=== PATIENT | male | born 1995 | race Caucasian/White ===

== ENCOUNTER 2021-03-05 19:14 | Inpatient (IN) ==
[2021-03-05] MEDS ORDERED: ACETAMINOPHEN 500 MG TAB PO STA (19:34)
[2021-03-05] MEDS ORDERED: SODIUM CHLORIDE 0.9% 1000ML 2,000 ML IV ONE (19:34)
[2021-03-05] MEDS ORDERED: KETOROLAC 30 MG/ML VIAL IV ONE (19:34)
[2021-03-05] MEDS ORDERED: ALBUTEROL 0.083% NEBU SOLN 3 ML VIAL NEB STA (19:35)
--- NOTE | 2021-03-05 19:53 | XRay Report ---
XR chest 1V portable CLINICAL HISTORY: covid fever COMPARISON STUDY: Chest radiograph March 03, 2021. FINDINGS: Lung volumes are normal. There is no pneumothorax or pleural effusion. Left basilar consoli dation has progressed. Additional multifocal opacities within lungs have developed since prior examin ation. Cardiac size is normal. There is no evidence for pulmonary edema. IMPRESSION: Significant progression of multifocal bilateral airspace opacities, including left basil ar consolidation, since prior chest radiograph. The findings represent viral pneumonia. ACT 112: Negative or not required by law. Electronically signed by: James Anaya M.D. 03/05/2021 7:51 PM
[2021-03-05] MEDS ORDERED: dexAMETHasone**PF** 10 MG/ML VIAL IV ONE (20:04)
[2021-03-05 20:09] LABS: Hematocrit (blood only) 42.4 % (42-52); Hemoglobin 14.5 g/dL (14.0-18.0); Mean Corpuscular Hemoglobin 28.4 pg (25-34); Mean Corpuscular Hgb Conc 34.2 g/dL (32-36); Mean Corpuscular Volume 83.1 fL (80-100); Mean Platelet Volume 9.6 fL (7.4-10.4); Platelet Count 197 K/uL (130-400); RDW Coefficient of Variation 12.5 % (11.5-14.5); RDW Standard Deviation 37.9 fL (36.4-46.3); White Blood Count 3.88 K/uL (4.8-10.8)
--- NOTE | 2021-03-05 20:24 | Emergency Department Note ---
History of Present Illness General Chief complaint: Fever Stated complaint: FEVER Time Seen by Provider: 03/05/21 19:23 History of Present Illness Maximum Pain Intensity: 2 This patient is a 25-year-old male who presents emergency department via private vehicle for evaluation of ongoing fever and productive cough. The patient was diagnosed with Covid on 02/27. He was sent home and reportedly finished a course of azithromycin in addition to doxycycline, which he is still taking. The patient has still continued to run a fever around 104 F. He last took ibuprofen 400 mg at 4 PM today. He did not take any Tylenol today. He did notice some blood in his sputum. Home Medications Medication Instructions Recorded Confirmed Type doxycycline hyclate 100 mg tablet 100 mg PO BID 10 Days #20 tab 03/03/21 1 Rx [id number]-xdqfvgon-ejpuh acid 400 1 tab PO DAILY 03/03/21 03/05/21 History mcg-vit K 20 mcg-lycop 300 mcg tablet (Men's Daily Formula) saw palmetto 500 mg capsule 500 mg PO DAILY 03/03/21 03/05/21 History ibuprofen 200 mg tablet 800 mg PO BID PRN 03/05/21 03/05/21 History Allergies Allergy/AdvReac Type Severity Reaction Status Date / Time animal dander Allergy Intermediate SNEEZING, Verified 03/05/21 20:17 CONGESTION bacitracin Allergy Intermediate SKIN Verified 03/05/21 20:17 [From Neosporin IRRITATION ([id number])] grass pollen Allergy Intermediate SNEEZING, Verified 03/05/21 20:17 CONGESTION house dust Allergy Intermediate SNEEZING, Verified 03/05/21 20:17 CONGESTION neomycin Allergy Intermediate SKIN Verified 03/05/21 20:17 [From Neosporin IRRITATION ([id number])] polymyxin B Allergy Intermediate SKIN Verified 03/05/21 20:17 [From Neosporin IRRITATION ([id number])] nickel Allergy Mild SKIN Verified 03/05/21 20:17 IRRITATION Penicillins AdvReac Severe SEVERE Verified 03/05/21 20:17 UPSET STOMACH Past Med/Surg History Medical History Pneumonia due to COVID-19 virus Social History Smoking Status: Never smoker Hx Alcohol Use: Yes Alcohol type: beer Hx Substance Use: No Preferred Language: Turkish Communication Ability: Effective Meat Specialist Required: No Beliefs That Will Affect Care: None Current Living Situation: Family Feels Safe at Home: Yes Assistive Devices: Oxygen - Continuous Review of Systems A total of 10 systems reviewed and were otherwise negative Physical Exam Vital Signs Vital Signs - 24 hr 03/05/21 19:14 03/05/21 19:17 03/05/21 20:05 Temperature 38.1 C H 38.1 C H Temperature Source Temporal Artery Scan Oral Pulse Rate 123 H Pulse Rate [Carotid] 128 H 130 H Pulse Rhythm [Carotid] Respiratory Rate 24 18 18 Respiratory Effort / Characteristics Non-Labored Spontaneous Respiratory Depth Normal Normal Blood Pressure 135/83 Blood Pressure [Left Arm] 114/73 Blood Pressure Mean 100 Blood Pressure Mean [Left Arm] 86 Blood Pressure Position [Left Arm] Lying Pulse Oximetry 92 93 99 Oxygen Delivery Method Room Air Room Air Room Air Sepsis Recent Fever Within 48 Hours Yes Sepsis New/Unexplained Change in Mental Status No Sepsis Action Taken by Nursing Physician Notified 03/05/21 20:40 Temperature Temperature Source Pulse Rate Pulse Rate [Carotid] 132 H Pulse Rhythm [Carotid] Regular Respiratory Rate 24 Respiratory Effort / Characteristics Non-Labored Respiratory Depth Blood Pressure Blood Pressure [Left Arm] 118/79 Blood Pressure Mean Blood Pressure Mean [Left Arm] 92 Blood Pressure Position [Left Arm] Lying Pulse Oximetry 90 Oxygen Delivery Method Room Air Sepsis Recent Fever Within 48 Hours Sepsis New/Unexplained Change in Mental Status Sepsis Action Taken by Nursing 25-year-old male, acutely ill in appearance. Constitutional WD/WN, vitals as above + ill appearing Eyes EOM intact bilaterally ENMT external ear and nose normal, oropharynx normal Neck trachea midline Respiratory Crackles at the bases bilaterally. Cardiovascular Rate/Rhythm: + tachycardic No murmur Gastrointestinal (Abdomen) normal bowel sounds, soft, nontender, no hepatosplenomegaly Musculoskeletal no cyanosis or clubbing, extremities motor strength 5/5 Skin Moist Neurologic Alert and oriented x3. No focal motor deficits. Psychiatric Acting appropriately Course Course Patient was seen and examined Vital signs including blood pressure were reviewed medications list was verified with patient Labs were obtained, and a saline lock was established An order was placed for continuous cardiac monitoring. The monitor shows a rate of 123 with sinus tachycardia rhythm. An EKG was performed and reviewed. Chest x-ray was performed and reviewed. The patient was ordered Toradol 30 mg IV, Tylenol 1000 g p.o., and albuterol treatment, Decadron 10 mg IV and 2 L of fluids. The case was discussed with my supervising physician The patient was updated via telephone regarding his chest x-ray and other results. He voiced understanding. I then spoke with the patient's father, Stephen via telephone. The patient was again updated via telephone. He and his family are in agreement with hospitalist consultation for likely inpatient management. Consultations Consultation #1: Amish hospitalist Administered Medications Guaifenesin (Guaifenesin 600 Mg Tabcr) 1,200 mg PO Q12 AHMET Stop: 04/04/21 22:59 Last Admin: 03/06/21 08:48 Dose: 1,200 mg Documented by: [id number] Admin: 03/05/21 22:58 Dose: 1,200 mg Documented by: [id number] Dexamethasone 6 mg/ Syringe 1.5 mls @ 1 mls/min IV Q24H AHMET Stop: 04/05/21 08:59 Last Admin: 03/06/21 08:51 Dose: 1 mls/min Documented by: [id number] Azithromycin 500 mg/ Dextrose 255 mls @ 125 mls/hr IV DAILY AHMET Stop: 03/13/21 08:59 Last Admin: 03/06/21 08:56 Dose: 125 mls/hr Documented by: [id number] Ceftriaxone Sodium 2,000 mg/ (Dextrose) 70 mls @ 140 mls/hr IV Q24H AHMET; Protocol Stop: 03/12/21 22:59 Last Infusion: 03/06/21 00:26 Dose: 0 mls/hr Documented by: [id number] Admin: 03/05/21 23:56 Dose: 140 mls/hr Documented by: [id number] Sodium Chloride (Sodium Chloride 0.9% 10ml Flush) 30 ml IV DAILY@2000 [facility] Stop: 03/09/21 20:01 Last Admin: 03/05/21 23:57 Dose: 30 ml Documented by: [id number] Vitamin D (Cholecalciferol 1,000 Units 25 Mcg Tab) 5,000 units PO QAM AHMET Stop: 04/05/21 08:59 Last Admin: 03/06/21 08:49 Dose: 5,000 units Documented by: [id number] Zinc Sulfate (Zinc Sulfate 220 Mg Capsule) 220 mg PO QAM AHMET Stop: 04/05/21 08:59 Last Admin: 03/06/21 08:49 Dose: 220 mg Documented by: [id number] Discontinued Medications Acetaminophen (Acetaminophen 500 Mg Tab) 1,000 mg PO NOW STA Stop: 03/05/21 19:35 Last Admin: 03/05/21 19:55 Dose: 1,000 mg Documented by: [id number] Albuterol (Albuterol 0.083% Nebu Soln 3 Ml Vial) 2.5 mg NEB NOW STA Stop: 03/05/21 19:36 Last Admin: 03/05/21 19:55 Dose: 2.5 mg Documented by: [id number] Albuterol (Albuterol Hfa 8 Gm Inhaler) 2 puffs INH QIDR AHMET Stop: 04/04/21 22:59 Last Admin: 03/06/21 07:28 Dose: 2 puffs Documented by: [id number] Admin: 03/05/21 23:50 Dose: 2 puffs Documented by: [id number] Dexamethasone Sodium Phosphate (DexamethasonePf 10 Mg/Ml Vial) 10 mg IV NOW ONE Stop: 03/05/21 20:05 Last Admin: 03/05/21 20:27 Dose: 10 mg Documented by: [id number] Sodium Chloride (Nss 1000ml) 2,000 mls @ 999 mls/hr IV .Q2H1M ONE Stop: 03/05/21 21:34 Last Infusion: 03/05/21 22:29 Dose: 0 mls/hr Documented by: [id number] Admin: 03/05/21 19:57 Dose: 999 mls/hr Documented by: [id number] Remdesivir 200 mg/ Sodium (Chloride) 250 mls @ 125 mls/hr IV ONE STA; Protocol Stop: 03/05/21 22:59 Last Infusion: 03/05/21 23:57 Dose: 0 mls/hr Documented by: [id number] Admin: 03/05/21 22:00 Dose: 125 mls/hr Documented by: [id number] Ketorolac Tromethamine (Ketorolac 30 Mg/Ml Vial) 30 mg IV NOW ONE Stop: 03/05/21 19:35 Last Admin: 03/05/21 19:55 Dose: 30 mg Documented by: [id number] Medical Decision Making Medical Records Attestation: I reviewed the patient's medical records. Home Medications Current Medication List: was personally reviewed by me Laboratory Data Attestation: I reviewed the patient's lab results. Result diagrams: 03/06/21 07:25 03/06/21 07:30 Lab Results 03/05/21 03/05/21 03/05/21 Range/Units 20:00 20:00 20:00 WBC 3.88 L (4.8-10.8) K/uL RBC 5.10 (4.7-6.1) M/uL Hgb 14.5 (14.0-18.0) g/dL Hct 42.4 (42-52) % MCV 83.1 (80-100) fL MCH 28.4 (25-34) pg MCHC 34.2 (32-36) g/dL RDW Std Deviation 37.9 (36.4-46.3) fL RDW Coeff of Car 12.5 (11.5-14.5) % Plt Count 197 (130-400) K/uL MPV 9.6 (7.4-10.4) fL Immature Gran % (Auto) 0.3 % Neut % (Auto) 84.7 % Lymph % (Auto) 12.9 % [place] % (Auto) 2.1 % Eos % (Auto) 0.0 % Baso % (Auto) 0.0 % Neut # (Auto) 3.29 (1.4-6.5) K/uL Lymph # (Auto) 0.50 L (1.2-3.4) K/uL [place] # (Auto) 0.08 L (0.11-0.59) K/uL Eos # (Auto) 0.00 (0-0.5) K/uL Baso # (Auto) 0.00 (0-0.2) K/uL Immature Gran # (Auto) 0.01 (0.00-0.02) K/uL Sodium 135 L (136-145) mmol/L Potassium 3.7 (3.5-5.1) mmol/L Chloride 100 (98-107) mmol/L Carbon Dioxide 27 (21-32) mmol/L Anion Gap 8.0 (3-11) BUN 5 L (7-18) mg/dl Creatinine 0.98 (0.6-1.4) mg/dl Est Cr Clr Drug Dosing 117.2 ml/min Est GFR ( Amer) 125.4 ml/min Est GFR (Non-Af Amer) 108.2 ml/min BUN/Creatinine Ratio 5.4 L (10-20) Glucose 110 H (70-99) mg/dl Calcium 9.0 (8.5-10.1) mg/dl Total Bilirubin 0.5 (0.2-1) mg/dl AST 106 H (15-37) U/L ALT 68 (12-78) U/L Alkaline Phosphatase 37 L (45-117) U/L Total Protein 7.5 (6.4-8.2) gm/dl Albumin 3.3 L (3.4-5.0) gm/dl Globulin 4.2 H (2.5-4.0) gm/dl Albumin/Globulin Ratio 0.8 L (0.9-2) Procalcitonin 0.08 (0-0.5) ng/ml COVID-19 Eval Order SARS-CoV-2 (PCR) (Negative) 03/05/21 03/05/21 Range/Units 20:30 20:30 WBC (4.8-10.8) K/uL RBC (4.7-6.1) M/uL Hgb (14.0-18.0) g/dL Hct (42-52) % MCV (80-100) fL MCH (25-34) pg MCHC (32-36) g/dL RDW Std Deviation (36.4-46.3) fL RDW Coeff of Car (11.5-14.5) % Plt Count (130-400) K/uL MPV (7.4-10.4) fL Immature Gran % (Auto) % Neut % (Auto) % Lymph % (Auto) % [place] % (Auto) % Eos % (Auto) % Baso % (Auto) % Neut # (Auto) (1.4-6.5) K/uL Lymph # (Auto) (1.2-3.4) K/uL [place] # (Auto) (0.11-0.59) K/uL Eos # (Auto) (0-0.5) K/uL Baso # (Auto) (0-0.2) K/uL Immature Gran # (Auto) (0.00-0.02) K/uL Sodium (136-145) mmol/L Potassium (3.5-5.1) mmol/L Chloride (98-107) mmol/L Carbon Dioxide (21-32) mmol/L Anion Gap (3-11) BUN (7-18) mg/dl Creatinine (0.6-1.4) mg/dl Est Cr Clr Drug Dosing ml/min Est GFR ( Amer) ml/min Est GFR (Non-Af Amer) ml/min BUN/Creatinine Ratio (10-20) Glucose (70-99) mg/dl Calcium (8.5-10.1) mg/dl Total Bilirubin (0.2-1) mg/dl AST (15-37) U/L ALT (12-78) U/L Alkaline Phosphatase (45-117) U/L Total Protein (6.4-8.2) gm/dl Albumin (3.4-5.0) gm/dl Globulin (2.5-4.0) gm/dl Albumin/Globulin Ratio (0.9-2) Procalcitonin (0-0.5) ng/ml COVID-19 Eval Order Covid19 at [facility] SARS-CoV-2 (PCR) POSITIVE A* (Negative) Imaging Data Attestation: I personally reviewed and interpreted this imaging study as follows: Radiologist's Impression: Chest X-Ray 03/05/21 19:34 XR chest 1V portable CLINICAL HISTORY: covid fever COMPARISON STUDY: Chest radiograph March 03, 2021. FINDINGS: Lung volumes are normal. There is no pneumothorax or pleural effusion. Left basilar consolidation has progressed. Additional multifocal opacities within lungs have developed since prior examination. Cardiac size is normal. Th ere is no evidence for pulmonary edema. IMPRESSION: Significant progression of multifocal bilateral airspace opacities, including left basilar consolidation, since prior chest radiograph. The findings represent viral pneumonia. ACT 112: Negative or not required by law. Electronically signed by: James Anaya M.D. 03/05/2021 7:51 PM ECG Data Attestation: I personally reviewed and interpreted this ECG as follows: Indication: + SOB/dyspnea Additional Comments: EKG shows tachycardia with a rate of [address] depression noted in the anterior leads. No prior EKG for comparison. Incomplete bundle branch block noted. Blood Pressure Blood Pressure Findings: Normal blood pressure MDM Narrative Differential diagnosis: Progressive viral pneumonia, bacterial pneumonia, acute respiratory failure, sepsis, dehydration, among others were considered This patient is a 25-year-old male that returns to the emergency department complaining of uncontrolled fever and upper respiratory symptoms. The patient is known to positive for Covid. He has been seen in the emergency department twice. He is completed a course of azithromycin and is currently on doxycycline. He has not seen any improvement. On exam, he was ill in appearance. He was febrile and tachycardic. Slightly tachypneic. Oxygen was 90% on room air. A work-up was performed. Labs are consistent with Covid with a slightly low WBC and slightly abnormal liver enzymes. Otherwise, they are fairly unremarkable. The chest x-ray is significantly worse than his chest x- ray from a few days ago. I did not feel comfortable sending the patient home given his worsening symptoms. The patient will be evaluated by the hospitalist for likely inpatient management. Impression & Plan Pneumonia due to COVID-19 virus Discharge Plan Visit Data Chief Complaint: Fever Stated Complaint: FEVER ED Provider: [facility] Midlevel Provider: Noemy Wilson Discharge Problem: Pneumonia due to COVID-19 virus Patient Disposition: Admitted As Inpatient Discharge Instructions Interventions: ED Discharge Assessment Last Done: 03/05/21 22:06
[2021-03-05 20:26] LABS: Albumin Level 3.3 gm/dl (3.4-5.0); BUN Creatinine Ratio 5.4 (10-20); Creatinine Clr Calc Pharmacy 117.2 ml/min; Est GFR (African American) 125.4 ml/min; Est GFR (Non-African American) 108.2 ml/min; Potassium 3.7 mmol/L (3.5-5.1)
[2021-03-05 20:29] LABS: Albumin Globulin Ratio 0.8 (0.9-2); Bilirubin,Total 0.5 mg/dl (0.2-1); Globulin 4.2 gm/dl (2.5-4.0); Total Protein 7.5 gm/dl (6.4-8.2)
[2021-03-05 20:37] LABS: Immature Granulocytes # (auto) 0.01 K/uL (0.00-0.02); Immature Granulocytes % (auto) 0.3 %; Lymphocytes % (auto) 12.9 %; Monocytes # (auto) 0.08 K/uL (0.11-0.59); Monocytes % (auto) 2.1 %; Neutrophils # (auto) 3.29 K/uL (1.4-6.5); Neutrophils % (auto) 84.7 %
[2021-03-05] MEDS ORDERED: REMDESIVIR 200 MG in SODIUM CHLORIDE 0.9% 210 ML IV STA (21:00)
--- NOTE | 2021-03-05 21:01 | History & Physical Report ---
Date of Service March 05, 2021 Assessment & Plan (1) Pneumonia due to COVID-19 virus: Plan: Pneumonia due to COVID-19 virus/hypoxia/worsening chest x-ray/secondary bacterial pneumonia- Dexamethasone 10 mg IV given in the ED Dexamethasone 6 mg IV every morning Remdesivir IV per protocol Azithromycin 500 mg IV daily Ceftriaxone 1 g IV daily Albuterol HFA 2 puffs 4 times daily, and every 2 hours as needed Guaifenesin extended release 1200 mg p.o. twice daily Nasal cannula oxygen, titrate to keep pulse ox around 95% Vitamin D 5000 international units p.o. daily Zinc sulfate 220 mg p.o. daily (2) Hypoxia: Plan: See above (3) Transaminitis: Plan: Elevated AST, likely secondary to COVID-19 infection Follow serially History of Present Illness Chief Complaint: The patient presents to the emergency department with complaint of persistent fever after having been diagnosed with COVID-19 infection and presently is on doxycycline and azithromycin orally Primary Care Provider: Nesha Mckeon The patient is a 25-year-old male with no significant past medical history who initially was assessed at [facility]'s emergency department on February 24 for a fever, and was COVID-19 negative at that time. He was discharged without treatment, and return to the ER on February 27, at that time was COVID-19 positive and was placed on a course of azithromycin. He was seen at this emergency department on March 03, and was placed on oral doxycycline due to concerns regarding secondary bacterial pneumonia. The patient presents to the emergency department again this evening with persistent temperature. He does admit to some progressive shortness of breath and dyspnea on exertion. The patient reports that initial sore throat has resolved. His s ense of taste and smell have improved but are still abnormal. Work-up in the emergency department included a chest x-ray with significant worsening compared to 03/03. Temperature was 100.6 F. Pulse ox initially was 88% on room air. Abnormal laboratories: AST 106, albumin 3.3. Patient was COVID-19 positive in the ED this evening Allergies Allergy/AdvReac Type Severity Reaction Status Date / Time animal dander Allergy Intermediate SNEEZING, Verified 03/05/21 20:17 CONGESTION bacitracin Allergy Intermediate SKIN Verified 03/05/21 20:17 [From Neosporin IRRITATION ([id number])] grass pollen Allergy Intermediate SNEEZING, Verified 03/05/21 20:17 CONGESTION house dust Allergy Intermediate SNEEZING, Verified 03/05/21 20:17 CONGESTION neomycin Allergy Intermediate SKIN Verified 03/05/21 20:17 [From Neosporin IRRITATION ([id number])] polymyxin B Allergy Intermediate SKIN Verified 03/05/21 20:17 [From Neosporin IRRITATION ([id number])] nickel Allergy Mild SKIN Verified 03/05/21 20:17 IRRITATION Penicillins AdvReac Severe SEVERE Verified 03/05/21 20:17 UPSET STOMACH Home Medications Medication Instructions Recorded Confirmed Type doxycycline hyclate 100 mg tablet 100 mg PO BID 10 Days #20 tab 03/03/21 03/05/21 Rx ajrdecwi-qgedcqnv-vudhn acid 400 1 tab PO DAILY 03/03/21 03/05/21 History mcg-vit K 20 mcg-lycop 300 mcg tablet (Men's Daily Formula) saw palmetto 500 mg capsule 500 mg PO DAILY 03/03/21 03/05/21 History ibuprofen 200 mg tablet 800 mg PO BID PRN 03/05/21 03/05/21 History Past Med/Surg History Medical History Pneumonia due to COVID-19 virus Social History Smoking Status: Never smoker Preferred Language: Rwandan Feels Safe at Home: Yes Review of Systems Review of Systems: The patient denies chest pain, palpitations, cough, lower extremity swelling, sore throat, chills, sweats, nausea, vomiting, diarrhea , constipation, abdominal pain, pelvic pain, blood in urine or stool, dysuria, urinary frequency or urgency, lightheadedness, dizziness, headache, memory loss, loss of consciousness, rash, abnormal bruising or bleeding, imbalance, focal or generalized weakness, numbness or tingling in arms or legs, generalized arthralgias or myalgias, back or neck pain, or night sweats. The review of systems is otherwise negative other than for that already noted above, and at least 10 systems have been reviewed. Physical Exam Physical Exam: The patient is awake, alert and oriented 3, well developed and well nourished, normocephalic and atraumatic, lying in bed and in no acute distress. HEENT--PERRL, EOMI, mucous membranes and oropharynx dry. Neck--supple. No JVD. No bruits. Thyroid normal, trachea midline, no adenopathy. Heart--normal S1 and S2. No murmurs, rubs or gallops. Lungs--coarse breath sounds bilaterally, left greater than right. No respiratory distress, no accessory muscle use. Abdomen--normal bowel sounds and soft. Nontender. Nondistended, no hernias or masses, no organomegaly. Extremities--no cyanosis or clubbing. No edema. There are good distal pulses b/l. Dermatologic--normal skin turgor, normal color, no abnormal lymph nodes, no rash. Neurologic--cranial nerves II through XII grossly intact. Rheumatologic--normal range of motion. Psychiatric--normal affect. Results & Data Results & Data ([facility]) Vital Signs (Past 12 Hours) Vital Signs Temp Pulse Pulse Resp BP BP Pulse Ox 03/05/21 20:40 132 H 24 118/79 90 03/05/21 20:05 100.6 F H 130 H 18 99 03/05/21 19:17 100.6 F H 123 H 18 135/83 93 Laboratory Results Laboratory Results WBC 3.88 K/uL (4.8-10.8) L 03/05/21 20:00 RBC 5.10 M/uL (4.7-6.1) 03/05/21 20:00 Hgb 14.5 g/dL (14.0-18.0) 03/05/21 20:00 Hct 42.4 % (42-52) 03/05/21 20:00 MCV 83.1 fL (80-100) 03/05/21 20:00 MCH 28.4 pg (25-34) 03/05/21 20:00 MCHC 34.2 g/dL (32-36) 03/05/21 20:00 RDW Std Deviation 37.9 fL (36.4-46.3) 03/05/21 20:00 RDW Coeff of Car 12.5 % (11.5-14.5) 03/05/21 20:00 Plt Count 197 K/uL (130-400) 03/05/21 20:00 MPV 9.6 fL (7.4-10.4) 03/05/21 20:00 Immature Gran % (Auto) 0.3 % 03/05/21 20:00 Neut % (Auto) 84.7 % 03/05/21 20:00 Lymph % (Auto) 12.9 % 03/05/21 20:00 [place] % (Auto) 2.1 % 03/05/21 20:00 Eos % (Auto) 0.0 % 03/05/21 20:00 Baso % (Auto) 0.0 % 03/05/21 20:00 Neut # (Auto) 3.29 K/uL (1.4-6.5) 03/05/21 20:00 Lymph # (Auto) 0.50 K/uL (1.2-3.4) L 03/05/21 20:00 [place] # (Auto) 0.08 K/uL (0.11-0.59) L 03/05/21 20:00 Eos # (Auto) 0.00 K/uL (0-0.5) 03/05/21 20:00 Baso # (Auto) 0.00 K/uL (0-0.2) 03/05/21 20:00 Immature Gran # (Auto) 0.01 K/uL (0.00-0.02) 03/05/21 20:00 Sodium 135 mmol/L (136-145) L 03/05/21 20:00 Potassium 3.7 mmol/L (3.5-5.1) 03/05/21 20:00 Chloride 100 mmol/L (98-107) 03/05/21 20:00 Carbon Dioxide 27 mmol/L (21-32) 03/05/21 20:00 Anion Gap 8.0 (3-11) 03/05/21 20:00 BUN 5 mg/dl (7-18) L 03/05/21 20:00 Creatinine 0.98 mg/dl (0.6-1.4) 03/05/21 20:00 Est Cr Clr Drug Dosing 117.2 ml/min 03/05/21 20:00 Est GFR ( Amer) 125.4 ml/min 03/05/21 20:00 Est GFR (Non-Af Amer) 108.2 ml/min 03/05/21 20:00 BUN/Creatinine Ratio 5.4 (10-20) L 03/05/21 20:00 Glucose 110 mg/dl (70-99) H 03/05/21 20:00 Calcium 9.0 mg/dl (8.5-10.1) 03/05/21 20:00 Total Bilirubin 0.5 mg/dl (0.2-1) 03/05/21 20:00 AST 106 U/L (15-37) H 03/05/21 20:00 ALT 68 U/L (12-78) 03/05/21 20:00 Alkaline Phosphatase 37 U/L (45-117) L 03/05/21 20:00 Total Protein 7.5 gm/dl (6.4-8.2) 03/05/21 20:00 Albumin 3.3 gm/dl (3.4-5.0) L 03/05/21 20:00 Globulin 4.2 gm/dl (2.5-4.0) H 03/05/21 20:00 Albumin/Globulin Ratio 0.8 (0.9-2) L 03/05/21 20:00 Procalcitonin 0.08 ng/ml (0-0.5) 03/05/21 20:00 COVID-19 Eval Order Covid19 at [facility] 03/05/21 20:30 SARS-CoV-2 (PCR) POSITIVE (Negative) A* 03/05/21 20:30 Impressions Chest X-Ray 03/05/21 19:34 XR chest 1V portable CLINICAL HISTORY: covid fever COMPARISON STUDY: Chest radiograph March 03, 2021. FINDINGS: Lung volumes are normal. There is no pneumothorax or pleural effusion. Left basilar consolidation has progressed. Additional multifocal opacities within lungs have developed since prior examination. Cardiac size is normal. There is no evidence for pulmonary edema. IMPRESSION: Significant progression of multifocal bilateral airspace opacities, including left basilar consolidation, since prior chest radiograph. The findings represent viral pneumonia. ACT 112: Negative or not required by law. Electronically signed by: James Anaya M.D. 03/05/2021 7:51 PM Code Status & VTE Plan Code Status Full code VTE Prophylaxis Plan VTE Prophylaxis will be ordered: Yes PG Care Time/CCT Total # of Minutes Spent Total Time Spent with Patient: Total time spent is greater than 50% in coordina tion of care (as documented) at patient's floor/unit and/or counseling patient: Coding Level of Care Code 22913 Initial Inpt Care Lvl 3 Diagnoses Hypoxia R09.02 Transaminitis R74.01 Pneumonia due to COVID-19 virus U07.1; J12.82
[2021-03-05] MEDS ORDERED: ONDANSETRON INJ 2 MG/ML 2 ML VIAL IV PRN (22:27)
[2021-03-05] MEDS ORDERED: ACETAMINOPHEN 325 MG TAB PO PRN (22:27)
[2021-03-05] MEDS: guaiFENesin 600 MG TABCR PO SCH (22:58)
[2021-03-05] MEDS ORDERED: cefTRIAXone SODIUM 2,000 MG in DEXTROSE 5% 50 ML IV SCH (23:00)
[2021-03-05] MEDS: ALBUTEROL HFA 8 GM INHALER INH SCH (23:50)
[2021-03-05] MEDS: SODIUM CHLORIDE 0.9% 10ML FLUSH IV SCH (23:57)
[2021-03-06] MEDS: ALBUTEROL HFA 8 GM INHALER INH SCH (07:28)
[2021-03-06 08:35] LABS: Hematocrit (blood only) 41.8 % (42-52); Hemoglobin 13.9 g/dL (14.0-18.0); Immature Granulocytes # (auto) 0.01 K/uL (0.00-0.02); Immature Granulocytes % (auto) 0.3 %; Lymphocytes # (auto) 0.33 K/uL (1.2-3.4); Lymphocytes % (auto) 9.4 %; Mean Corpuscular Hemoglobin 28.4 pg (25-34); Mean Corpuscular Hgb Conc 33.3 g/dL (32-36); Mean Corpuscular Volume 85.3 fL (80-100); Mean Platelet Volume 10.1 fL (7.4-10.4); Monocytes # (auto) 0.07 K/uL (0.11-0.59); Neutrophils # (auto) 3.11 K/uL (1.4-6.5); Neutrophils % (auto) 88.3 %; Platelet Count 225 K/uL (130-400); RDW Coefficient of Variation 12.7 % (11.5-14.5); RDW Standard Deviation 40.1 fL (36.4-46.3); White Blood Count 3.52 K/uL (4.8-10.8)
[2021-03-06] MEDS: guaiFENesin 600 MG TABCR PO SCH ×2 (08:48→20:48)
[2021-03-06] MEDS: CHOLECALCIFEROL 1,000 UNITS 25 MCG TAB PO SCH (08:49)
[2021-03-06] MEDS: ZINC SULFATE 220 MG CAPSULE PO SCH (08:49)
[2021-03-06] MEDS: dexAMETHasone 6 MG in SYRINGE 0 ML IV SCH (08:51)
[2021-03-06 08:57] LABS: Albumin Level 2.7 gm/dl (3.4-5.0); BUN Creatinine Ratio 7.3 (10-20); Calcium 8.8 mg/dl (8.5-10.1); Creatinine Clr Calc Pharmacy 136.8 ml/min; Est GFR (Non-African American) 123.4 ml/min; Potassium 4.1 mmol/L (3.5-5.1)
[2021-03-06 08:59] LABS: Albumin Globulin Ratio 0.7 (0.9-2); Bilirubin,Total 0.3 mg/dl (0.2-1); C Reactive Protein 7.01 mg/dl (0-0.29); Globulin 3.8 gm/dl (2.5-4.0); Total Protein 6.5 gm/dl (6.4-8.2)
[2021-03-06] MEDS ORDERED: AZITHROMYCIN 500 MG in DEXTROSE 5% 250 ML IV SCH (09:00)
[2021-03-06] MEDS ORDERED: ALBUTEROL HFA 8 GM INHALER INH PRN (09:16)
--- NOTE | 2021-03-06 11:18 | Hospitalist Progress Note ---
Date of Service March 06, 2021 Assessment & Plan (1) Pneumonia due to COVID-19 virus: Plan: Pneumonia due to COVID-19 virus/hypoxia/worsening chest x-ray/secondary bacterial pneumonia sick for about 7-10 days now dexamethasone 6mg IV daily, day 2 Remdesivir IV per protocol, day 2 stop antibiotics as he already completed a course of azithromycin outpatient Albuterol HFA 2 puffs 4 times daily PRN Guaifenesin extended release 1200 mg p.o. twice daily Nasal cannula oxygen, titrate to keep pulse ox around 95% Vitamin D 5000 international units p.o. daily Zinc sulfate 220 mg p.o. daily lay prone or on his side, incentive spirometer stable on 3L, discussed that he might need more oxygen before he gets better, don't be alarmed (2) Hypoxia: Plan: due to COVID pneumonia stable today on 3L has some tachypnea but no distress minimal cough, really not bothering him (3) Transaminitis: Plan: Elevated AST, likely secondary to COVID-19 infection follow while on Remdesivir Admission and Anticipated Discharge Date Admission Date: March 05, 2021 Subjective patient says he is feeling better than yesterday/last night he says he has never been this sick, he says he feels a little nervous encouraged him that he is young, CRP not very high, only on low flow oxygen discussed importance of eating what he can, laying prone or on his side when he is in bed using incentive spirometer and flutter valve reviewed chart and labs from admission Review of Systems Review of Systems: All systems reviewed & are unremarkable except as noted in Subjective Constitutional: + body aches, + fatigue and + weakness; no fever, no chills and no sweats Respiratory: + cough, + dyspnea and + dyspnea on exertion Cardiovascular: no chest pain Gastrointestinal: no abdominal pain, no nausea, no vomiting, no constipation and no diarrhea/loose stools Physical Exam Physical Exam: General: well developed, well nourished, thin male, ill a ppearing Neck: supple, trachea midline, normal thyroid Lungs: crackles in bases, + tachypnea, no accessory muscle use, no distress Heart: tachycardic S1 and S2, no murmur, peripheral pulses normal, capillary refill normal, no edema Abdomen: soft, NT, ND, + BS, no hepatomegaly, normal to percussion Extremities: normal in appearance, no cyanosis, no petechiae, strength is 5/5 bilaterally Neuro: awake, cooperative, moves all extremities, no focal motor deficits, CN II-XII intact, sensation in extremities intact, normal speech Skin: warm, dry, no rash, normal turgor Psych: Awake, alert oriented x 3, euthymic affect Results & Data Results & Data ([facility]) Vital Signs (Past 12 Hours) Vital Signs Temp Pulse Pulse Pulse Resp BP BP 03/06/21 10:01 03/06/21 09:46 102 H 03/06/21 08:10 37.5 C 126 H 30 H 120/59 L 03/06/21 07:28 118 H 18 03/06/21 03:49 37.3 C 108 H 18 107/67 03/05/21 23:50 117 H 22 Pulse Ox Pulse Ox 03/06/21 10:01 92 03/06/21 09:46 03/06/21 08:10 93 03/06/21 07:28 93 03/06/21 03:49 95 03/05/21 23:50 90 Laboratory Results Laboratory Results - last 24 hr 03/05/21 03/05/21 03/05/21 20:00 20:00 20:00 WBC 3.88 L RBC 5.10 Hgb 14.5 Hct 42.4 MCV 83.1 MCH 28.4 MCHC 34.2 RDW Std Deviation 37.9 RDW Coeff of Car 12.5 Plt Count 197 MPV 9.6 Immature Gran % (Auto) 0.3 Neut % (Auto) 84.7 Lymph % (Auto) 12.9 Fleming % (Auto) 2.1 Eos % (Auto) 0.0 Baso % (Auto) 0.0 Neut # (Auto) 3.29 Lymph # (Auto) 0.50 L Fleming # (Auto) 0.08 L Eos # (Auto) 0.00 Baso # (Auto) 0.00 Immature Gran # (Auto) 0.01 Sodium 135 L Potassium 3.7 Chloride 100 Carbon Dioxide 27 Anion Gap 8.0 BUN 5 L Creatinine 0.98 Est Cr Clr Drug Dosing 117.2 Est GFR ( Amer) 125.4 Est GFR (Non-Af Amer) 108.2 BUN/Creatinine Ratio 5.4 L Glucose 110 H Calcium 9.0 Total Bilirubin 0.5 AST 106 H ALT 68 Alkaline Phosphatase 37 L C-Reactive Protein Total Protein 7.5 Albumin 3.3 L Globulin 4.2 H Albumin/Globulin Ratio 0.8 L Procalcitonin 0.08 COVID-19 Eval Order SARS-CoV-2 (PCR) 03/05/21 03/05/21 03/06/21 20:30 20:30 07:25 WBC 3.52 L RBC 4.90 Hgb 13.9 L Hct 41.8 L MCV 85.3 MCH 28.4 MCHC 33.3 RDW Std Deviation 40.1 RDW Coeff of Car 12.7 Plt Count 225 MPV 10.1 Immature Gran % (Auto) 0.3 Neut % (Auto) 88.3 Lymph % (Auto) 9.4 Fleming % (Auto) 2.0 Eos % (Auto) 0.0 Baso % (Auto) 0.0 Neut # (Auto) 3.11 Lymph # (Auto) 0.33 L Fleming # (Auto) 0.07 L Eos # (Auto) 0.00 Baso # (Auto) 0.00 Immature Gran # (Auto) 0.01 Sodium Potassium Chloride Carbon Dioxide Anion Gap BUN Creatinine Est Cr Clr Drug Dosing Est GFR ( Amer) Est GFR (Non-Af Amer) BUN/Creatinine Ratio Glucose Calcium Total Bilirubin AST ALT Alkaline Phosphatase C-Reactive Protein Total Protein Albumin Globulin Albumin/Globulin Ratio Procalcitonin COVID-19 Eval Order Covid19 at [facility] SARS-CoV-2 (PCR) POSITIVE A* 03/06/21 07:30 WBC RBC Hgb Hct MCV MCH MCHC RDW Std Deviation RDW Coeff of Car Plt Count MPV Immature Gran % (Auto) Neut % (Auto) Lymph % (Auto) Fleming % (Auto) Eos % (Auto) Baso % (Auto) Neut # (Auto) Lymph # (Auto) Fleming # (Auto) Eos # (Auto) Baso # (Auto) Immature Gran # (Auto) Sodium 140 Potassium 4.1 Chloride 108 H Carbon Dioxide 25 Anion Gap 7.0 BUN 6 L Creatinine 0.84 Est Cr Clr Drug Dosing 136.8 Est GFR ( Amer) 143.0 Est GFR (Non-Af Amer) 123.4 BUN/Creatinine Ratio 7.3 L Glucose 145 H Calcium 8.8 Total Bilirubin 0.3 AST 80 H ALT 57 Alkaline Phosphatase 33 L C-Reactive Protein 7.01 H Total Protein 6.5 Albumin 2.7 L Globulin 3.8 Albumin/Globulin Ratio 0.7 L Procalcitonin COVID-19 Eval Order SARS-CoV-2 (PCR) Medications Administered Current Inpatient Medications Acetaminophen (Acetaminophen 325 Mg Tab) 650 mg PO Q4H PRN PRN Reason: Pain or Fever Stop: 04/04/21 22:26 Albuterol (Albuterol Hfa 8 Gm Inhaler) 2 puffs INH Q4R PRN PRN Reason: Shortness Of Breath Or Wheezing Stop: 04/05/21 09:15 Guaifenesin (Guaifenesin 600 Mg Tabcr) 1,200 mg PO Q12 AHMET Stop: 04/04/21 22:59 Last Admin: 03/06/21 08:48 Dose: 1,200 mg Documented by: Dexamethasone 6 mg/ Syringe 1.5 mls @ 1 mls/min IV Q24H AHMET Stop: 04/05/21 08:59 Last Admin: 03/06/21 08:51 Dose: 1 mls/min Documented by: Azithromycin 500 mg/ Dextrose 255 mls @ 125 mls/hr IV DAILY AHMET Stop: 03/13/21 08:59 Last Infusion: 03/06/21 11:09 Dose: Infused Documented by: Remdesivir 100 mg/ Sodium (Chloride) 250 mls @ 250 mls/hr IV Q24H [facility]; Protocol Stop: 03/09/21 20:59 Ceftriaxone Sodium 2,000 mg/ (Dextrose) 70 mls @ 140 mls/hr IV Q24H AHMET; Protocol Stop: 03/12/21 22:59 Last Infusion: 03/06/21 00:26 Dose: Infused Documented by: Ondansetron HCl (Ondansetron Inj 2 Mg/Ml 2 Ml Vial) 4 mg IV Q6H PRN PRN Reason: Nausea Stop: 04/04/21 22:26 Sodium Chloride (Sodium Chloride 0.9% 10ml Flush) 30 ml IV DAILY@2000 [facility] Stop: 03/09/21 20:01 Last Admin: 03/05/21 23:57 Dose: 30 ml Documented by: Vitamin D (Cholecalciferol 1,000 Units 25 Mcg Tab) 5,000 units PO QAM AHMET Stop: 04/05/21 08:59 Last Admin: 03/06/21 08:49 Dose: 5,000 units Documented by: Zinc Sulfate (Zinc Sulfate 220 Mg Capsule) 220 mg PO QAM AHMET Stop: 04/05/21 08:59 Last Admin: 03/06/21 08:49 Dose: 220 mg Documented by: PG Care Time/CCT Total # of Minutes Spent Total Time Spent with Patient: Total time spent is greater than 50% in coordination of care (as documented) at patient's floor/unit and/or counseling patient: Coding Level of Care Code 50630 Subseq Hosp Care Lvl 2 Diagnoses Pneumonia due to COVID-19 virus U07.1; J12.82 Hypoxia R09.02 Transaminitis R74.01
[2021-03-06] MEDS: REMDESIVIR 100 MG in SODIUM CHLORIDE 0.9% 230 ML IV SCH (19:42)
[2021-03-06] MEDS: SODIUM CHLORIDE 0.9% 10ML FLUSH IV SCH (20:48)
[2021-03-07] MEDS: BENZONATATE 100 MG CAPSULE PO SCH ×3 (04:57→21:06)
[2021-03-07 07:56] LABS: Basophils # (auto) 0.01 K/uL (0-0.2); Basophils % (auto) 0.1 %; Hematocrit (blood only) 43.1 % (42-52); Hemoglobin 14.4 g/dL (14.0-18.0); Immature Granulocytes # (auto) 0.04 K/uL (0.00-0.02); Immature Granulocytes % (auto) 0.6 %; Lymphocytes # (auto) 0.73 K/uL (1.2-3.4); Lymphocytes % (auto) 10.4 %; Mean Corpuscular Hemoglobin 28.3 pg (25-34); Mean Corpuscular Hgb Conc 33.4 g/dL (32-36); Mean Corpuscular Volume 84.7 fL (80-100); Mean Platelet Volume 9.6 fL (7.4-10.4); Monocytes # (auto) 0.38 K/uL (0.11-0.59); Monocytes % (auto) 5.4 %; Neutrophils # (auto) 5.89 K/uL (1.4-6.5); Neutrophils % (auto) 83.5 %; Platelet Count 315 K/uL (130-400); RDW Coefficient of Variation 12.7 % (11.5-14.5); RDW Standard Deviation 38.7 fL (36.4-46.3); Red Blood Count 5.09 M/uL (4.7-6.1); White Blood Count 7.05 K/uL (4.8-10.8)
[2021-03-07 08:25] LABS: Albumin Level 2.7 gm/dl (3.4-5.0); BUN Creatinine Ratio 12.5 (10-20); Calcium 8.7 mg/dl (8.5-10.1); Creatinine Clr Calc Pharmacy 138.4 ml/min; Est GFR (African American) 143.7 ml/min
[2021-03-07 08:27] LABS: Albumin Globulin Ratio 0.7 (0.9-2); Bilirubin,Total 0.4 mg/dl (0.2-1); C Reactive Protein 3.37 mg/dl (0-0.29); Globulin 3.8 gm/dl (2.5-4.0); Total Protein 6.5 gm/dl (6.4-8.2)
[2021-03-07] MEDS: ZINC SULFATE 220 MG CAPSULE PO SCH (08:48)
[2021-03-07] MEDS: CHOLECALCIFEROL 1,000 UNITS 25 MCG TAB PO SCH (08:48)
[2021-03-07] MEDS: guaiFENesin 600 MG TABCR PO SCH ×2 (08:48→21:07)
[2021-03-07] MEDS: dexAMETHasone 6 MG in SYRINGE 0 ML IV SCH (08:48)
[2021-03-07] MEDS ORDERED: BENZONATATE 100 MG CAPSULE PO SCH (09:00)
[2021-03-07] MEDS: ENOXAPARIN INJ 40 MG/0.4 ML SYR SQ SCH ×2 (11:02→21:06)
[2021-03-07] MEDS ORDERED: SODIUM CHLORIDE 0.9% 500 ML IV SCH (17:30)
[2021-03-07 17:59] LABS: Creatine Kinase 332 U/L (39-308); Thyroid Stimulating Hormone 0.286 uIu/ml (0.300-4.500); Troponin I < 0.015 ng/ml (0-0.045)
[2021-03-07 18:02] LABS: D Dimer 690 ug/L FEU (0-500)
[2021-03-07] MEDS ORDERED: MELATONIN 3 MG TAB PO PRN (18:02)
[2021-03-07 18:15] LABS: T4 Free Thyroxine 1.29 ng/dl (0.8-1.6)
[2021-03-07] MEDS ORDERED: OPTIRAY 320 125ml IV ONE (19:04)
--- NOTE | 2021-03-07 19:20 | Hospitalist Progress Note ---
Date of Service March 07, 2021 Assessment & Plan (1) Pneumonia due to COVID-19 virus: Plan: Moderate disease. With resulting acute hypoxic respiratory failure - remains on 3 L NC O2. Day #3 of dexamethasone 6mg IV daily Remdesivir IV per protocol, day 3. AST/ALT/Cr stable. Previously completed 5-day course of azithromycin by report. Due to tachycardia, abnormal EKG, and mildly elevated d-dimer will check CTA chest - r/o PE. Give 500cc of NS due to volume contracted state and IV contrast. Recheck procal in am. Aggressive pulmonary toilet - flutter valve, incentive hemalatha, self-proning, mucinex, etc. Add lovenox 40mg BID for DVT prophylaxis. (2) Acute respiratory failure with hypoxia: Plan: 2nd to #1. Supportive care, steroids, etc. (3) Sepsis: Plan: meets criteria with fever, tachycardia, recent leukopenia, and source (pneumonia from COVID-19) supportive care (4) Transaminitis: Plan: 2nd to COVID-19 infection. AST slowly improving. CPK scantly elevated. Supportive care. Repeat ast/alt in am. (5) Tachycardia: Plan: Likely multifactorial - SIRS/sepsis, volume depletion, anxiety, etc. Can't rule out PE - check CTA chest, r/o PE. Keep on telemetry. Repeat EKG tonight unchanged from prior EKG. (6) DVT prophylaxis: Plan: lovenox 40mg BID added Plan: updated pt's father/mother extensively by phone today add low-dose buspar 2.5mg prn for anxiety melatonin HS sleep cont zinc, vit D, etc Admission and Anticipated Discharge Date Admission Date: March 05, 2021 Subjective tele overnight - tachycardic, low 100s patient laying flat in bed during the visit he could speak in full sentences and had no dyspnea at rest he states he is about 12 days into his illness he continues with cough - dry no chest pain or pleuritic pain - but taking deep breaths causes him to have coughing fits he has h/o exercise-induced asthma as a child but no asthma since denies tobacco or etoh use he admits to poor oral intake Review of Systems Review of Systems: gen - feels warm, no chills HEENT - loss of taste or smell but has improved CV - no chest pain; some palpitations GI - no nausea/emesis/abd pain Physical Exam Physical Exam: Gen: NAD, a/o x 3 mouth/lips: MM dry neck: no JVD heart: tachy, s1 s2, no murmur lungs: fine bibasilar rales, no wheeze, no increased work of breathing abd: soft, NT, ND, BS+, no HSM skin: no rash, skin flushed/warm ext: no edema, pulses 2+ b/l Results & Data Results & Data ([facility]) Vital Signs (Past 12 Hours) Vital Signs Temp Pulse Pulse Resp BP BP Pulse Ox 03/07/21 15:29 36.7 C 97 H 22 108/57 L 97 03/07/21 15:00 116 H 03/07/21 11:13 37.2 C 100 H 18 110/55 L 93 03/07/21 10:00 03/07/21 08:00 89 03/07/21 07:38 37.4 C 104 H 20 109/63 93 Pulse Ox 03/07/21 15:29 03/07/21 15:00 03/07/21 11:13 03/07/21 10:00 94 03/07/21 08:00 03/07/21 07:38 Laboratory Results Laboratory Results - last 24 hr 03/07/21 03/07/21 03/07/21 07:19 07:19 17:17 WBC 7.05 RBC 5.09 Hgb 14.4 Hct 43.1 MCV 84.7 MCH 28.3 MCHC 33.4 RDW Std Deviation 38.7 RDW Coeff of Car 12.7 Plt Count 315 MPV 9.6 Immature Gran % (Auto) 0.6 Neut % (Auto) 83.5 Lymph % (Auto) 10.4 Wood % (Auto) 5.4 Eos % (Auto) 0.0 Baso % (Auto) 0.1 Neut # (Auto) 5.89 Lymph # (Auto) 0.73 L Wood # (Auto) 0.38 Eos # (Auto) 0.00 Baso # (Auto) 0.01 Immature Gran # (Auto) 0.04 H D-Dimer 690 H* Sodium 139 Potassium 4.0 Chloride 106 Carbon Dioxide 25 Anion Gap 9.0 BUN 10 Creatinine 0.83 Est Cr Clr Drug Dosing 138.4 Est GFR ( Amer) 143.7 Est GFR (Non-Af Amer) 124.0 BUN/Creatinine Ratio 12.5 Glucose 114 H Calcium 8.7 Magnesium Total Bilirubin 0.4 AST 68 H ALT 68 Alkaline Phosphatase 36 L Total Creatine Kinase Troponin I C-Reactive Protein 3.37 H Total Protein 6.5 Albumin 2.7 L Globulin 3.8 Albumin/Globulin Ratio 0.7 L TSH Free T4 03/07/21 17:17 WBC RBC Hgb Hct MCV MCH MCHC RDW Std Deviation RDW Coeff of Car Plt Count MPV Immature Gran % (Auto) Neut % (Auto) Lymph % (Auto) Wood % (Auto) Eos % (Auto) Baso % (Auto) Neut # (Auto) Lymph # (Auto) Wood # (Auto) Eos # (Auto) Baso # (Auto) Immature Gran # (Auto) D-Dimer Sodium Potassium Chloride Carbon Dioxide Anion Gap BUN Creatinine Est Cr Clr Drug Dosing Est GFR ( Amer) Est GFR (Non-Af Amer) BUN/Creatinine Ratio Glucose Calcium Magnesium 2.0 Total Bilirubin AST ALT Alkaline Phosphatase Total Creatine Kinase 332 H Troponin I < 0.015 C-Reactive Protein Total Protein Albumin Globulin Albumin/Globulin Ratio TSH 0.286 L Free T4 1.29 PG Care Time/CCT Total # of Minutes Spent Total Time Spent with Patient: Total time spent is greater than 50% in c oordination of care (as documented) at patient's floor/unit and/or counseling patient: Coding Level of Care Code 98197 Subseq Hosp Care Lvl 3 Diagnoses Pneumonia due to COVID-19 virus U07.1; J12.82 Transaminitis R74.01 Acute respiratory failure with hypoxia J96.01 Tachycardia R00.0 DVT prophylaxis Z29.9 Sepsis A41.9
--- NOTE | 2021-03-07 19:23 | CT Scan Report ---
CT ANGIOGRAM OF THE CHEST CLINICAL HISTORY: Tachycardia. Covid pneumonia. COMPARISON STUDY: Chest x-ray dated 03/05/2021. TECHNIQUE: Following the IV administration of 120 cc of Optiray 320, CT angiogram of the chest was pe rformed from the upper abdomen to the thoracic inlet utilizing the pulmonary embolus protocol. Images are reviewed in the axial, sagittal, and coronal planes. 3-D MIPS images are created and assessed. I V contrast was administered without complication. A dose lowering technique was utilized adhering to the principles of ALARA. CT DOSE: 399.76 mGy.cm FINDINGS: Thyroid: Imaged portions of the thyroid gland are normal in size and attenuation. Thoracic aorta: The thoracic aorta is normal in caliber and demonstrates standard 3-vessel arch anato my. No dissection is seen. Pulmonary vasculature: The pulmonary trunk is normal in caliber. There are no filling defects identif ied in main, lobar, or segmental pulmonary branches to suggest pulmonary embolus. Heart: The heart is normal in size and without pericardial effusion. Lungs and pleural spaces: Multifocal airspace consolidation is seen throughout both lungs, greatest a t the lung bases. No pleural effusion is identified. The trachea and central airways are clear. There are scattered calcified granulomas. Mediastinum: There is no mediastinal lymphadenopathy. Clare: Mildly enlarged hilar nodes measure up to 12 mm in short axis. Axillae: There is no axillary lymphadenopathy. Upper abdomen: The spleen is mildly enlarged measuring 13.4 cm in length. Partially visualized upper abdominal viscera is otherwise within normal limits. Skeletal structures: No lytic or blastic bony lesions are seen. IMPRESSION: 1. There is no evidence of pulmonary embolus in the main, lobar, or segmental pulmonary arteries. 2. Multifocal airspace consolidation is consistent with the reported history of a viral pneumonia. Ra diographic follow-up to resolution is recommended. 3. Mildly enlarged hilar nodes are likely reactive. ACT 112: Negative or not required by law. Electronically signed by: Juan Greene M.D. 03/07/2021 7:22 PM
[2021-03-07] MEDS: REMDESIVIR 100 MG in SODIUM CHLORIDE 0.9% 230 ML IV SCH (21:06)
[2021-03-07] MEDS: SODIUM CHLORIDE 0.9% 10ML FLUSH IV SCH (22:21)
[2021-03-08 07:57] LABS: Basophils # (auto) 0.01 K/uL (0-0.2); Basophils % (auto) 0.2 %; Hematocrit (blood only) 46.2 % (42-52); Hemoglobin 15.3 g/dL (14.0-18.0); Immature Granulocytes # (auto) 0.03 K/uL (0.00-0.02); Immature Granulocytes % (auto) 0.6 %; Lymphocytes # (auto) 0.53 K/uL (1.2-3.4); Lymphocytes % (auto) 9.7 %; Mean Corpuscular Hemoglobin 28.4 pg (25-34); Mean Corpuscular Hgb Conc 33.1 g/dL (32-36); Mean Corpuscular Volume 85.9 fL (80-100); Mean Platelet Volume 9.4 fL (7.4-10.4); Monocytes % (auto) 12.9 %; Neutrophils # (auto) 4.17 K/uL (1.4-6.5); Neutrophils % (auto) 76.6 %; Platelet Count 383 K/uL (130-400); RDW Coefficient of Variation 12.7 % (11.5-14.5); RDW Standard Deviation 40.4 fL (36.4-46.3); Red Blood Count 5.38 M/uL (4.7-6.1); White Blood Count 5.44 K/uL (4.8-10.8)
[2021-03-08 08:19] LABS: BUN Creatinine Ratio 13.9 (10-20); Calcium 9.2 mg/dl (8.5-10.1); Creatinine Clr Calc Pharmacy 129.1 ml/min; Est GFR (African American) 139.7 ml/min; Est GFR (Non-African American) 120.5 ml/min; Potassium 4.5 mmol/L (3.5-5.1)
[2021-03-08] MEDS: ENOXAPARIN INJ 40 MG/0.4 ML SYR SQ SCH ×2 (08:52→20:38)
[2021-03-08] MEDS: busPIRone 5 MG TAB PO PRN (08:52)
[2021-03-08] MEDS: BENZONATATE 100 MG CAPSULE PO SCH ×3 (08:52→20:37)
[2021-03-08] MEDS: guaiFENesin 600 MG TABCR PO SCH ×2 (08:52→20:37)
[2021-03-08] MEDS: ZINC SULFATE 220 MG CAPSULE PO SCH (08:53)
[2021-03-08] MEDS: dexAMETHasone 6 MG in SYRINGE 0 ML IV SCH (08:53)
[2021-03-08] MEDS: CHOLECALCIFEROL 1,000 UNITS 25 MCG TAB PO SCH (08:53)
--- NOTE | 2021-03-08 13:05 | Electrocardiogram Report ---
Test Reason : Blood Pressure : / mmHG Vent. Rate : 102 BPM Atrial Rate : 102 BPM P-R Int : 144 ms QRS Dur : 098 ms QT Int : 354 ms P-R-T Axes : 055 014 004 degrees QTc Int : 461 ms Sinus tachycardia Otherwise normal ECG When compared with ECG of 05-MAR-2021 20:21, Borderline Criteria for Inferior infarct no longer present Confirmed by Oni Connor ([id number]) on 03/08/2021 1:04:25 PM Referred By: REFERRED SELF Confirmed By:Oni Connor
[2021-03-08] MEDS: REMDESIVIR 100 MG in SODIUM CHLORIDE 0.9% 230 ML IV SCH (20:36)
--- NOTE | 2021-03-08 21:02 | Hospitalist Progress Note ---
Date of Service March 08, 2021 Assessment & Plan (1) Pneumonia due to COVID-19 virus: Plan: With resulting acute hypoxic respiratory failure - remains on 3 L NC O2. Day #4 of dexamethasone 6mg IV daily Remdesivir IV per protocol, day 4. AST/ALT/Cr stable. Previously completed 5-day course of azithromycin by report. CTA chest 03/07 without PE but significant b/l COVID pneumonia. No evidence of any complicating bacterial superinfection or CHF. Procal this am negative. Cont lovenox 40mg BID. Cont albuterol prn. Aggressive pulmonary toilet - flutter valve, incentive hemalatha, self-proning, mucinex, etc. Gave him handout on proning today with pictures demonstrating such. Send sputum cx given the thick, yellow sputum. (2) Acute respiratory failure with hypoxia: Plan: 2nd to #1. Supportive care, steroids, etc. (3) Sepsis: Plan: met criteria with fever, tachycardia, recent leukopenia, and source (pneumonia from COVID-19) upon admission improved supportive care (4) Transaminitis: Plan: 2nd to COVID-19 infection. AST/alt still elevated but acceptable. recheck 48 hours. levels still acceptable enough for use of remdesivir. (5) Tachycardia: Plan: Likely multifactorial - SIRS/sepsis, volume depletion, anxiety, etc. Improved today. NO PE seen on CTA chest 03/07. EKG yesterday wnl. (6) DVT prophylaxis: Plan: lovenox 40mg BID Plan: updated pt's father/mother extensively by phone once again today cont melatonin HS sleep cont zinc, vit D, etc cont buspar prn anxiety encouraged more ambulation Admission and Anticipated Discharge Date Admission Date: March 05, 2021 Subjective patient feels about the same or slightly better than yesterday less anxious today does continue to complain that he thinks the steroids are making him warm tele overnight NSR or sinus tach cont with cough some intermittent sputum - thick, tenacious, yellow with coughing his chest his tight & hurts trying to prone but makes his chest hurt more denies dyspnea at rest appetite seems a bit better no other new complaints Review of Systems Review of Systems: gen - no fevers/chills but feels warm psych - anxious, fragmented sleep cv - chest tightness when he coughs pulm - mild LEDBETTER GI - no nausea/emesis HEENT - taste/smell intact Physical Exam Physical Exam: Gen: NAD, a/o x 3, coughing fit during the visit mouth: MMM neck: no JVD heart: RRR, s1 s2, no murmur lungs: fine bibasilar rales - slightly more prominent than yesterday; no wheeze, no increased work of breathing abd: soft, NT, ND, BS+, spleen tip palpable skin: no rash ext: no edema, pulses 2+ b/l Results & Data Results & Data ([facility]) Vital Signs (Past 12 Hours) Vital Signs Temp Pulse Resp BP Pulse Ox Pulse Ox 03/08/21 19:00 36.8 C 89 20 116/76 95 03/08/21 15:00 36.9 C 83 18 109/65 95 03/08/21 12:00 37.0 C 79 18 116/57 L 94 03/08/21 10:00 92 03/08/21 09:03 36.7 C 101 H 18 119/67 90 Laboratory Results Laboratory Results - last 24 hr 03/08/21 03/08/21 03/08/21 07:25 07:25 07:25 WBC 5.44 RBC 5.38 Hgb 15.3 Hct 46.2 MCV 85.9 MCH 28.4 MCHC 33.1 RDW Std Deviation 40.4 RDW Coeff of Car 12.7 Plt Count 383 MPV 9.4 Immature Gran % (Auto) 0.6 Neut % (Auto) 76.6 Lymph % (Auto) 9.7 Sutton % (Auto) 12.9 Eos % (Auto) 0.0 Baso % (Auto) 0.2 Neut # (Auto) 4.17 Lymph # (Auto) 0.53 L Sutton # (Auto) 0.70 H Eos # (Auto) 0.00 Baso # (Auto) 0.01 Immature Gran # (Auto) 0.03 H Sodium 138 Potassium 4.5 Chloride 103 Carbon Dioxide 28 Anion Gap 7.0 BUN 12 Creatinine 0.89 Est Cr Clr Drug Dosing 129.1 Est GFR ( Amer) 139.7 Est GFR (Non-Af Amer) 120.5 BUN/Creatinine Ratio 13.9 Glucose 104 H Calcium 9.2 AST 93 H ALT 131 H Procalcitonin 0.07 PG Care Time/CCT Total # of Minutes Spent Total Time Spent with Patient: Total time spent is greater than 50% in coordination of care (as documented) at patient's floor/unit and/or counseling patient: Coding Level of Care Code 88834 Subseq Hosp Care Lvl 2 Diagnoses Pneumonia due to COVID-19 virus U07.1; J12.82 Acute respiratory failure with hypoxia J96.01 Sepsis A41.9 Transaminitis R74.01 Tachycardia R00.0 DVT prophylaxis Z29.9
[2021-03-08] MEDS: SODIUM CHLORIDE 0.9% 10ML FLUSH IV SCH (21:50)
[2021-03-09 06:48] LABS: BUN Creatinine Ratio 19.3 (10-20); Calcium 9.1 mg/dl (8.5-10.1); Creatinine Clr Calc Pharmacy 140.1 ml/min; Est GFR (African American) 144.5 ml/min; Est GFR (Non-African American) 124.6 ml/min; Potassium 4.3 mmol/L (3.5-5.1)
[2021-03-09] MEDS: BENZONATATE 100 MG CAPSULE PO SCH ×3 (08:22→20:55)
[2021-03-09] MEDS: dexAMETHasone 6 MG in SYRINGE 0 ML IV SCH (08:22)
[2021-03-09] MEDS: CHOLECALCIFEROL 1,000 UNITS 25 MCG TAB PO SCH (08:23)
[2021-03-09] MEDS: ZINC SULFATE 220 MG CAPSULE PO SCH (08:23)
[2021-03-09] MEDS: guaiFENesin 600 MG TABCR PO SCH ×2 (08:23→20:55)
[2021-03-09] MEDS: ENOXAPARIN INJ 40 MG/0.4 ML SYR SQ SCH ×2 (08:25→20:55)
[2021-03-09] MEDS: busPIRone 5 MG TAB PO PRN (08:30)
[2021-03-09] MEDS: REMDESIVIR 100 MG in SODIUM CHLORIDE 0.9% 230 ML IV SCH (19:49)
[2021-03-09] MEDS: SODIUM CHLORIDE 0.9% 10ML FLUSH IV SCH (20:56)
--- NOTE | 2021-03-09 22:28 | Hospitalist Progress Note ---
Date of Service March 09, 2021 Assessment & Plan (1) Pneumonia due to COVID-19 virus: Plan: With resulting acute hypoxic respiratory failure -- IMPROVING. Day #5 of dexamethasone 6mg IV daily Remdesivir IV per protocol, day 5 today - final dose. AST/ALT/Cr stable. Previously completed 5-day course of azithromycin by report. CTA chest 03/07 without PE but significant b/l COVID pneumonia. No evidence of any complicating bacterial superinfection or CHF. Cont lovenox 40mg BID. Cont albuterol prn. Aggressive pulmonary toilet - flutter valve, incentive hemalatha, self-proning, mucinex, etc. sputum cx pending. I am very pleased with his progress overnight. wean NC O2 as tolerated. (2) Acute respiratory failure with hypoxia: Plan: 2nd to #1. Supportive care, steroids, etc. IMPROVING. (3) Sepsis: Plan: met criteria with fever, tachycardia, recent leukopenia, and source (pneumonia from COVID-19) upon admission improved/resolving supportive care (4) Transaminitis: Plan: 2nd to COVID-19 infection. AST/alt still elevated but acceptable and stable. recheck 48 hours. (5) Tachycardia: Plan: Likely multifactorial - SIRS/sepsis, volume depletion, anxiety, etc. Improved. NO PE seen on CTA chest 03/07. EKGs have been stable. (6) DVT prophylaxis: Plan: lovenox 40mg BID Plan: updated pt's father/mother extensively by phone once again today questions answered they are happy to hear their son is improving cont melatonin HS sleep cont zinc, vit D, etc cont buspar prn anxiety hopefully we can wean off the O2 next 1-2 days then ultimately d/c home Admission and Anticipated Discharge Date Admission Date: March 05, 2021 Subjective tele stable overnight slept prone most of last evening has been up in chair much of the day still coughing, but able to take deeper breaths appetite today is best it has been in some time no new complaints he definitely feels better more so than previously Review of Systems Review of Systems: gen - no fevers or chills; some sweats still CV - no chest pain or orthopnea pulm - ongoing cough, occasional sputum GI - no N/V/D; no pain Physical Exam Physical Exam: Gen: NAD, a/o x 3; best he has looked all week mouth: MMM neck: no JVD heart: RRR, s1 s2, no murmur lungs: decreased BS bases, rales MUCH improved today; airation improving as well; no wheeze; no increased WOB abd: soft, NT, ND, BS+, spleen tip palpable skin: no rash ext: no edema, pulses 2+ b/l Results & Data Results & Data ([facility]) Vital Signs (Past 12 Hours) Vital Signs Temp Pulse Pulse Resp BP BP Pulse Ox 03/09/21 19:13 36.6 C 92 H 20 123/68 94 03/09/21 16:09 36.8 C 92 H 20 108/71 91 03/09/21 14:30 99 H 03/09/21 12:08 36.8 C 85 18 113/67 91 Laboratory Results Laboratory Results - last 24 hr 03/09/21 05:30 Sodium 137 Potassium 4.3 Chloride 102 Carbon Dioxide 30 Anion Gap 5.0 BUN 16 Creatinine 0.82 Est Cr Clr Drug Dosing 140.1 Est GFR ( Amer) 144.5 Est GFR (Non-Af Amer) 124.6 BUN/Creatinine Ratio 19.3 Glucose 93 Calcium 9.1 AST 60 H ALT 140 H PG Care Time/CCT Total # of Minutes Spent Total Time Spent with Patient: Total time spent is greater than 50% in coordination of care (as documented) at patient's floor/unit and/or counseling patient: Coding Level of Care Code 39663 Subseq Hosp Care Lvl 2 Diagnoses Pneumonia due to COVID-19 virus U07.1; J12.82 Acute respiratory failure with hypoxia J96.01 Sepsis A41.9 Transaminitis R74.01 Tachycardia R00.0 DVT prophylaxis Z29.9
[2021-03-10] MEDS: BENZONATATE 100 MG CAPSULE PO SCH ×3 (08:45→22:25)
[2021-03-10] MEDS: dexAMETHasone 6 MG in SYRINGE 0 ML IV SCH (08:45)
[2021-03-10] MEDS: CHOLECALCIFEROL 1,000 UNITS 25 MCG TAB PO SCH (08:46)
[2021-03-10] MEDS: guaiFENesin 600 MG TABCR PO SCH ×2 (08:46→22:24)
[2021-03-10] MEDS: ENOXAPARIN INJ 40 MG/0.4 ML SYR SQ SCH ×2 (08:46→22:24)
[2021-03-10] MEDS: ZINC SULFATE 220 MG CAPSULE PO SCH (08:48)
[2021-03-10] MEDS ORDERED: MELATONIN 3 MG TAB PO SCH (21:15)
--- NOTE | 2021-03-10 21:40 | Hospitalist Progress Note ---
Date of Service March 10, 2021 Assessment & Plan (1) Pneumonia due to COVID-19 virus: Plan: With resulting acute hypoxic respiratory failure -- IMPROVING very nicely over the last 48 hours. Day #6 of dexamethasone 6mg IV daily. Plan 10 days in total. s/p Remdesivir x 5 days. s/p 5 days of zithromax. CTA chest 03/07 without PE but significant b/l COVID pneumonia. No evidence of any complicating bacterial superinfection (despite recent zithromax use) or CHF. Cont lovenox 40mg BID. Cont albuterol prn. Aggressive pulmonary toilet - flutter valve, incentive hemalatha, self-proning, mucinex, etc. sputum cx negative. cont to wean NC O2 as tolerated. (2) Acute respiratory failure with hypoxia: Plan: 2nd to #1. Supportive care, steroids, etc. IMPROVING. Wean NC O2. (3) Sepsis: Plan: 2nd to COVID-19 pneumonia - resolved (4) Transaminitis: Plan: 2nd to COVID-19 infection. recheck ast/alt in am. (5) Tachycardia: Plan: improved. was likely due mainly to SIRS/sepsis. can d/c tele. (6) DVT prophylaxis: Plan: lovenox 40mg BID Plan: updated pt's father/mother extensively by phone once again today questions answered told them I am hoping for d/c perhaps this weekend we talked about ? of needing O2 at discharge -- but hopefully not cont melatonin HS sleep cont zinc, vit D, etc cont buspar prn anxiety Admission and Anticipated Discharge Date Admission Date: March 05, 2021 Subjective tele nl overnight; mainly NSR, occasional sinus tach with activity proning, spending a lot of time in the chair feels "really good today" coughing but improved mild LEDBETTER - no change can take deeper breaths without it causing pain in chest or coughing fits smell/taste back to normal eating very well no new complaints Review of Systems Review of Systems: gen - no fevers, chills; energy improving CV - no pleuritic pain; no chest pain pulm - sputum production 1-2x's a day GI - moving bowels, no pain Physical Exam Physical Exam: Gen: NAD, a/o x 3, looks great today mouth: MMM neck: no JVD heart: RRR, s1 s2, no murmur lungs: CTA b/l, mildly decreased BS bases only, no rales or wheeze abd: soft, NT, ND, BS+ skin: no rash ext: no edema, pulses 2+ b/l Results & Data Results & Data ([facility]) Vital Signs (Past 12 Hours) Vital Signs Temp Pulse Pulse Resp BP Pulse Ox Pulse Ox 03/10/21 21:11 36.8 C 16 116/71 03/10/21 16:10 36.7 C 92 H 18 112/71 95 03/10/21 14:30 95 H 03/10/21 11:25 36.5 C 97 H 18 109/68 94 03/10/21 10:00 91 PG Care Time/CCT Total # of Minutes Spent Total Time Spent with Patient: Total time spent is greater than 50% in coordination of care (as documented) at patient's floor/unit and/or counseling patient: Coding Level of Care Code 22297 Subseq Hosp Care Lvl 2 Diagnoses Pneumonia due to COVID-19 virus U07.1; J12.82 Acute respiratory failure with hypoxia J96.01 Sepsis A41.9 Transaminitis R74.01 Tachycardia R00.0 DVT prophylaxis Z29.9
[2021-03-11 07:04] LABS: Alanine Aminotransferase 140 U/L (12-78); Aspartate Aminotransferase 60 U/L (15-37); Blood Urea Nitrogen 11 mg/dl (7-18); Carbon Dioxide 31 mmol/L (21-32); Chloride 103 mmol/L (98-107); Creatinine Clr Calc Pharmacy 155.3 ml/min; Est GFR (African American) > 150.0 ml/min; Glucose 81 mg/dl (70-99); Potassium 4.2 mmol/L (3.5-5.1); Sodium 137 mmol/L (136-145)
[2021-03-11] MEDS: CHOLECALCIFEROL 1,000 UNITS 25 MCG TAB PO SCH (09:03)
[2021-03-11] MEDS: guaiFENesin 600 MG TABCR PO SCH (09:03)
[2021-03-11] MEDS: ZINC SULFATE 220 MG CAPSULE PO SCH (09:03)
[2021-03-11] MEDS: BENZONATATE 100 MG CAPSULE PO SCH ×2 (09:04→13:44)
[2021-03-11] MEDS: dexAMETHasone 6 MG in SYRINGE 0 ML IV SCH (09:04)
[2021-03-11] MEDS: ENOXAPARIN INJ 40 MG/0.4 ML SYR SQ SCH (09:05)
--- NOTE | 2021-03-11 13:25 | Discharge Summary ---
Date of Service date of admission - March 05, 2021 date of discharge - March 11, 2021 Admission HPI Per Admitting Provider The patient is a 25-year-old male with no significant past medical history who [facility] for a fever, and was COVID-19 negative at that time. He was discharged without treatment, and return to the ER on February 27, at that time was COVID-19 positive and was placed on a course of azithromycin. He was seen at this emergency department on March 03, and was placed on oral doxycycline due to concerns regarding secondary bacterial pneumonia. The patient presents to the emergency department again this evening with persistent temperature. He does admit to some progressive shortness of breath and dyspnea on exertion. The patient reports that initial sore throat has resolved. His sense of taste and smell have improved but are still abnormal. Work-up in the emergency department included a chest x-ray with significant worsening compared to 03/03. Temperature was 100.6 F. Pulse ox initially was 88% on room air. Abnormal laboratories: AST 106, albumin 3.3. Patient was COVID-19 positive in the ED this evening Principal Diagnosis acute hypoxic respiratory failure 2nd to COVID-19 pneumonia Discharge Exam Gen: NAD, a/o x 3, no respiratory distress HEENT: MMM, no lesions Neck: supple, no JVD Heart: RRR, s1 s2, no murmurs Lungs: scant rales bases, otherwise CTA b/l Abd: soft, NT, ND, BS+, no HSM Ext: no edema, pulses 2+ b/l Discharge Data Allergies Allergy/AdvReac Type Severity Reaction Status Date / Time animal dander Allergy Intermediate SNEEZING, Verified 03/05/21 20:17 CONGESTION bacitracin Allergy Intermediate SKIN Verified 03/05/21 20:17 [From Neosporin IRRITATION ([id number])] grass pollen Allergy Intermediate SNEEZING, Verified 03/05/21 20:17 CONGESTION house dust Allergy Intermediate SNEEZING, Verified 03/05/21 20:17 CONGESTION neomycin Allergy Intermediate SKIN Verified 03/05/21 20:17 [From Neosporin IRRITATION ([id number])] polymyxin B Allergy Intermediate SKIN Verified 03/05/21 20:17 [From Neosporin IRRITATION ([id number])] nickel Allergy Mild SKIN Verified 03/05/21 20:17 IRRITATION Penicillins AdvReac Severe SEVERE Verified 03/05/21 20:17 UPSET STOMACH Procedures Performed ambulatory oxygen 2-step test - no need for home O2 Ordered Studies Chest X-Ray 03/05/21 19:34 XR chest 1V portable CLINICAL HISTORY: covid fever COMPARISON STUDY: Chest radiograph March 03, 2021. FINDINGS: Lung volumes are normal. There is no pneumothorax or pleural effusion. Left basilar consolidation has progressed. Additional multifocal opacities within lungs have developed since prior examination. Cardiac size is normal. There is no evidence for pulmonary edema. IMPRESSION: Significant progression of multifocal bilateral airspace opacities, including left basilar consolidation, since prior chest radiograph. The findings represent viral pneumonia. ACT 112: Negative or not required by law. Electronically signed by: James Anaya M.D. 03/05/2021 7:51 PM Chest CTA 03/07/21 18:20 CT ANGIOGRAM OF THE CHEST CLINICAL HISTORY: Tachycardia. Covid pneumonia. COMPARISON STUDY: Chest x-ray dated 03/05/2021. TECHNIQUE: Following the IV administration of 120 cc of Optiray 320, CT angiogram of the chest was performed from the upper abdomen to the thoracic inlet utilizing the pulmonary embolus protocol. Images are reviewed in the axial, sagittal, and coronal planes. 3-D MIPS images are created and assessed. IV contrast was administered without complication. A dose lowering technique was utilized adhering to the principles of ALARA. CT DOSE: 399.76 mGy.cm FINDINGS: Thyroid: Imaged portions of the thyroid gland are normal in size and attenuation. Thoracic aorta: The thoracic aorta is normal in caliber and demonstrates standard 3-vessel arch anatomy. No dissection is seen. Pulmonary vasculature: The pulmonary trunk is normal in caliber. There are no filling defects identified in main, lobar, or segmental pulmonary branches to suggest pulmonary embolus. Heart: The heart is normal in size and without pericardial effusion. Lungs and pleural spaces: Multifocal airspace consolidation is seen throughout both lungs, greatest at the lung bases. No pleural effusion is identified. The trachea and central airways are clear. There are scattered calcified granulomas. Mediastinum: There is no mediastinal lymphadenopathy. Clare: Mildly enlarged hilar nodes measure up to 12 mm in short axis. Axillae: There is no axillary lymphadenopathy. Upper abdomen: The spleen is mildly enlarged measuring 13.4 cm in length. Partially visualized upper abdominal viscera is otherwise within normal limits. Skeletal structures: No lytic or blastic bony lesions are seen. IMPRESSION: 1. There is no evidence of pulmonary embolus in the main, lobar, or segmental pulmonary arteries. 2. Multifocal airspace consolidation is consistent with the reported history of a viral pneumonia. Radiographic follow-up to resolution is recommended. 3. Mildly enlarged hilar nodes are likely reactive. ACT 112: Negative or not required by law. Electronically signed by: Juan Greene M.D. 03/07/2021 7:22 PM Hospital Course (1) Pneumonia due to COVID-19 virus: With resulting acute hypoxic respiratory failure. Treated with a 5-day course of Remdesivir, 5-day course of Zithromax, aggressive pulmonary toilet, and 7 days of dexamethasone. He required NC O2 for much of his stay, weaning off the evening prior to discharge. CTA chest 03/07 without PE but significant b/l COVID pneumonia. No evidence of any complicating acute CHF. Sputum culture remained negative. On day of discharge he passed an ambulatory oxygen 2-step test - ie, he did not need home O2. He will complete 3 more days of dexamethasone 6mg daily post-discharge. In light of the severity of his illness/pneumonia I recommended he f/[facility] with [facility] to follow him through his recovery. (2) Acute respiratory failure with hypoxia: 2nd to #1. Supportive care, steroids, etc. O2 weaned off prior to discharge. (3) Sepsis: 2nd to COVID-19 pneumonia - resolved (4) Transaminitis: 2nd to COVID-19 infection. AST 60 at discharge. ALT 140 at discharge. Recommended against any alcohol use post-discharge and excessive tylenol use until transaminases could be rechecked as an outpatient. (5) Tachycardia: improved/resolved. was likely due to SIRS/sepsis. tachycardia was sinus tach. (6) DVT prophylaxis: lovenox 40mg BID was employed during the stay. he was not sent home on oral VTE prophylaxis at discharge.. Total Time Total Time Spent Total Time Spent (In Minutes): 40 Discharge Plan Discharge Items Patient Disposition: Home - Self-Care Reason For Visit: COVID 19 PNEUMONIA Discharge Diagnosis: 1. COVID-19 Pneumonia - improving/resolving. 2. Abnormal liver function tests - due to COVID infection - stable. Activity: As commented below Activity Comment: gradually increase activities over the next 2 weeks Sexual Activity: Wait until after follow-up appointment Exercise/Sports: Wait until after follow-up appointment Driving/Machine Use: Resume 3 days after discharge Non-emergency contact: Primary Care Provider and Chip Tuner Call non-emergency contact if: you have any medication questions, your symptoms worsen and you have a fever Follow-up/Referrals: [facility] [Provider Group] - 04/08/21 8:45 am (3-4 weeks; follow-up for mod-severe COVID pneumonia, remote h/o asthma, allergies. this apt will be with Dr Moncada at [facility] Pulmonology office) Nesha Mckeon D.O. [Primary Care Provider] - 03/21/21 11:00 am Diet: Regular Addtl Attending Provider Instructions: Mr Cassidy, Negrito were admitted and treated for moderate-severe COVID-19 pneumonia. You received a combination of oxygen, steroids (dexamethasone), Remdesivir anti- viral medication, and other supportive measures. You improved very nicely during your stay, and by 03/10 your oxygen was weaned off. Recommendations - 1. dexamethasone steroid - 6mg once daily with food for 3 additional days starting 03/12/21. Take with food. 2. you can continue to take vitamin D [id number] if desired. 2000 IU daily is sufficient. At this time would stop the zinc as you have been taking it for well over 10 days. 3. continue your deep breathing exercises by using the green flutter valve and your incentive spirometry. Do this for another 5-7 days. 4. check your oxygen levels 2 times each day with your pulse oximeter for the next few days. If your oxygen levels are consistently less than 92% please seek medical attention. You can purchase a pulse oximeter at [employer], [employer], [email or web address], etc. 5. continue to sleep on your side or on your belly rather than your back as this helps speed up your recovery. During the day-time, when you are resting, continue to do the belly breathing as well. Would do this well into next week. 6. ok to take [id number] mucinex up to 1200mg twice daily for cough/congestion. 7. plan to spend the next 3 days at home recovering and resting. Please be sure to listen to your body and don't over do it. You will likely have another week or two of ongoing recovery until you are back to 100%. Sometimes it can take even longer. 8. you are technically no longer contagious to others as 10 days have passed since the start of your illness, your symptoms have improved significantly, and you have had no fever in several days. However, again - please plan to spend the next few days at home recovering. On Sunday of next week gradually increase your activities outside the home, ok to spend time in the community (with mask on), etc. 9. wear a mask when you leave your home at all times. 10. please obtain a flu shot in the next 1-2 months. 11. please strongly consider getting a COVID vaccine in about 3 months. 12. abnormal liver tests - this was due to COVID infection. About 1/3 of people with COVID have these abnormalities. Please plan to have the liver tests repeated in about 1-2 weeks at the time of your follow-up appointment. Avoid alcohol and tylenol in the meantime. The liver tests typically normalize during this time period. 13. on 03/11 you passed your walking oxygen test after walking for 6 minutes. Your lowest oxygen level with walking was 92%. You do not need oxygen at home. Follow-up - see separate section Return to any hospital if - * you develop recurrent fevers over 100.5 degrees * you develop recurrent, worsening shortness of breath * you develop chest pains * you have a swollen or painful leg * any other concerns We are very happy for you that you are recovering so nicely! It was our pleasure caring for you, Dr Smalls Pending Studies at Discharge: No Stand-Alone Forms: My [facility] [employer], Smoking Cessation Medications and DC Order Prescriptions: Continued saw palmetto 500 mg Capsule 500 mg PO DAILY RF: 0 Men's Daily Formula 400-20-300 mcg Tablet 1 tab PO DAILY RF: 0 ibuprofen 200 mg Tablet 800 mg PO BID PRN (Reason: Fever Or Pain) RF: 0 Discontinued doxycycline hyclate 100 mg tablet 100 mg PO BID 10 Days Qty: 20 RF: 0 Discharge Orders: Discharge Order (Routine); Ordered 03/11/21 Ordered By: Víctor Vu/Other Patient Handouts: Caring for Someone Who Has COVID-19, Disinfecting Your Home of COVID-19, 2019-nCoV, COVID-19 Prevention, COVID-19 Home Care, Proning COVID-19 Admission Data Admit Date/Time: 03/05/21 21:00 Attending Provider: Víctor Smalls Admit Provider: Stu Ojeda Primary Care Provider: Nesha Mckeon Other Providers: Stu Ojeda Other Interventions: Discharge Summary Assessment (RN) Last Done: 03/11/21 14:05 Coding Level of Care Code D/C DAY MANAGEMENT >30 MINS Diagnoses Pneumonia due to COVID-19 virus U07.1; J12.82 Acute respiratory failure with hypoxia J96.01 Sepsis A41.9 Transaminitis R74.01 Tachycardia R00.0 DVT prophylaxis Z29.9
== END 2021-03-11 15:39 | disposition home or self-care (01) | DRG 871 ==
LOC: ED 19:14 → SUATTDRO 21:00 → 2S 21:00